=== PATIENT | male | born 1975 | race Caucasian/White ===

== ENCOUNTER → 2022-11-18 | Outpatient (CLI) | payer BC ==
[2022-11-18 10:05] LABS: BASO % 0.4 % (0.0-1.0); EOS # 0.2 10*3/uL (0.0-0.4); HEMATOCRIT 44.2 % (42.0-52.0); LYMPH # 3.6 10*3/uL (1.3-4.4); LYMPH % 33.4 % (27.0-41.0); MEAN CELL VOLUME 90.4 fl (80.0-94.0); MEAN CORPUSCULAR HGB 30.7 pg (27.0-31.0); MEAN CORPUSCULAR HGB CONC 33.9 g/dl (33.0-37.0); MEAN PLATELET VOLUME 8.3 fl (9.6-12.3); MONO # 0.8 10*3/uL (0.1-1.0); NEUT # 6.1 10*3/uL (2.3-7.9); NEUT % 56.8 % (47.0-73.0); PLATELET COUNT AUTOMATED 350 10*3/uL (130-400); RED BLOOD COUNT 4.89 10*6/uL (4.50-5.90); RED CELL DISTRI WIDTH 12.4 % (0-14.5); WHITE BLOOD COUNT 10.7 10*3/uL (4.8-10.8)
[2022-11-18 10:38] LABS: ALKALINE PHOSPHATASE 99 U/L (46-116); BUN 8 mg/dl (9-23); CHLORIDE 102 mmol/L (98-107); POTASSIUM 4.2 mmol/L (3.4-5.1); TOTAL PROTEIN 7.4 gm/dL (6.0-8.0)
[2022-11-18 11:09] LABS: SGPT/ALT < 7 U/L (10-49)
== END | disposition home or self-care (01) ==
LOC: LAB 09:25 → EDBD 09:25
PROVIDERS: ATTEND Nurse Practitioner Family
DX: L73.2 Hidradenitis suppurativa (principal)

== ENCOUNTER → 2022-11-24 | Outpatient (CLI) | payer BC ==
[2022-11-26 10:08] LABS: TB1 Ag VALUE 0.03 IU/mL (.)
== END | disposition home or self-care (01) ==
LOC: LAB 01:27
PROVIDERS: ATTEND Nurse Practitioner Family
DX: L73.2 Hidradenitis suppurativa (principal)